=== PATIENT | male | born 1980 | race Caucasian/White ===

== ENCOUNTER 2025-06-01 07:39 | Outpatient (NON) | payer OTHER, SELFPAY | END 2025-06-01 07:40 | disposition home or self-care (01) | LOC: ANHGOSHLAB 07:39 | PROVIDERS: PCP Student in an Organized Health Care Education/Training Program; Visit Provider Otolaryngology Otolaryngology/Facial Plastic Surgery | DX: H92.12 Otorrhea, left ear (principal) | CPT/HCPCS: 87070; 87075; 87077; 87147; 87186 ==